=== PATIENT | male | born 1940 ===

== ENCOUNTER 2017-06-17 02:00 | Emergency (ER) | payer MEDICARE ==
[2017-06-17 02:15] VITALS: BMI 24.1
--- NOTE | 2017-06-17 02:28 | ED PDOC ---
HPI: Psych/Substance Abuse Time Seen by Provider: 06/17/17 02:13 Chief Complaint (Nursing): Alcohol Ingestion Chief Complaint (Provider): Alcohol Ingestion ED Caveat: Intoxicated History Per: Patient, EMS History/Exam Limitations: intoxication Onset/Duration Of Symptoms: Other (prior to arrival) Current Symptoms Are (Timing): Still Present Additional Complaint(s): 77 y/o male brought in by EMS due to alcohol intoxication. Patient was found publicly intoxicated. Patient has swelling to left cheek and a small skin tear. Speech is slurred and patient denies any recollection of sustaining his injury. Patient denies any medical complaints. Past Medical History Reviewed: Historical Data, Nursing Documentation, Vital Signs Vital Signs: Last Vital Signs Temp 98.0 F 06/17/17 02:11 Pulse 81 06/17/17 02:11 Resp 18 06/17/17 02:11 BP 132/70 06/17/17 02:11 Pulse Ox 97 06/17/17 02:11 - Medical History PMH: Hypothyroidism - Family History Family History: States: Unknown Family Hx - Immunization History Hx Tetanus Toxoid Vaccination: No Hx Influenza Vaccination: No Hx Pneumococcal Vaccination: No - Home Medications Home Medications: Ambulatory Orders Medication Instructions Recorded Levothyroxine 75 mcg PO DAILY 12/07/14 Prednisone 20 mg PO DAILY #3 tab 12/07/14 Betamethasone Valerate 0.1% 1 appl TOP DAILY 06/17/15 [Valisone] Cetirizine HCl [All Day Allergy] 10 mg PO DAILY PRN 06/17/15 Ergocalciferol (Vitamin D2) 1 tab PO QWK 06/17/15 [Vitamin D2] - Allergies Allergies/Adverse Reactions: Allergies Allergy/AdvReac Type Severity Reaction Status Date / Time No Known Allergies Allergy Verified 06/17/17 02:10 Review of Systems ROS Statement: Except As Marked, All Systems Reviewed And Found Negative ENT: Positive for: Other (left cheek swelling) Skin: Positive for: Lesions (left cheek tear) Physical Exam - Reviewed Nursing Documentation Reviewed: Yes Vital Signs Reviewed: Yes - Physical Exam Appears: Positive for: Non-toxic, No Acute Distress Head Exam: Positive for: NORMOCEPHALIC. Negative for: ATRAUMATIC (edema to left cheek, small skin laceration to left cheek) Skin: Positive for: Normal Color, Warm, Dry Eye Exam: Positive for: EOMI, Normal appearance, PERRL Neck: Positive for: Normal, Painless ROM, Supple Cardiovascular/Chest: Positive for: Regular Rate, Rhythm. Negative for: Murmur Respiratory: Positive for: Normal Breath Sounds. Negative for: Respiratory Distress Gastrointestinal/Abdominal: Positive for: Normal Exam, Bowel Sounds, Soft. Negative for: Tenderness Back: Positive for: Normal Inspection. Negative for: L CVA Tenderness, R CVA Tenderness, Vertebral Tenderness Extremity: Positive for: Normal ROM. Negative for: Pedal Edema, Deformity Neurologic/Psych: Positive for: Alert, Oriented. Negative for: Motor/Sensory Deficits - ECG O2 Sat by Pulse Oximetry: 97 (RA) Pulse Ox Interpretation: Normal Medical Decision Making Medical Decision Making: Time: 02:15 Initial Impression: 77 y/o male with alcohol intoxication and possible head or facial injury Initial Plan: --CT Head w/o contrast --CT Maxillofacial --Alcohol serum --Accucheck --Reevaluation Time: 04:48 CT HEAD FINDINGS: Brain: There is mild diffuse cerebral atrophy present, consistent with this patient's age. No hemorrhage. No significant white matter disease. No edema. Ventricles: Unremarkable. No ventriculomegaly. Bones/joints: Unremarkable. No acute fracture. Soft tissues: Unremarkable. Sinuses: There is diffuse mucoperiosteal thickening in the ethmoid and frontal sinuses, consistent with chronic sinusitis. Mastoid air cells: Unremarkable as visualized. No mastoid effusion. IMPRESSION: No evidence of an acute intracranial abnormality. Chronic sinusitis. Time: 05:07 CT MAXILLOFACIAL FINDINGS: Bones/joints: No acute fracture. Soft tissues: Facial soft tissue swelling. Orbits: Unremarkable. Sinuses: There is extensive mucoperiosteal thickening in the maxillary, ethmoid , frontal sinuses, consistent with chronic sinusitis. IMPRESSION: No acute fracture. Extensive chronic sinusitis. Time: 06:56 Upon reevaluation, patient is A&Ox3 with steady gait and normal speech. Patient is stable for discharge. Scribe Attestation: Documented by Tavo Gunderson, acting as a scribe for Sunil Scott MD. Provider Scribe Attestation: All medical record entries made by the Scribe were at my direction and personally dictated by me. I have reviewed the chart and agree that the record accurately reflects my personal performance of the history, physical exam, medical decision making, and the department course for this patient. I have also personally directed, reviewed, and agree with the discharge instructions and disposition. Disposition - Clinical Impression Clinical Impression: Alcohol abuse with intoxication - Patient ED Disposition Is Patient to be Admitted: No Counseled Patient/Family Regarding: Studies Performed, Diagnosis - Disposition Disposition: Routine/Home Disposition Time: 06:56 Condition: STABLE Forms: [employer] (Ukrainian)
--- NOTE | 2017-06-17 04:47 | CT ---
EXAM: CT Head Without Intravenous Contrast CLINICAL HISTORY: 77 years old, male; Injury or trauma; Fall; Initial encounter; Blunt trauma (contusions or hematomas); Consciousness not specified; Additional info: Head injury TECHNIQUE: Axial computed tomography images of the head/brain without intravenous contrast. All CT scans at this facility use one or more dose reduction techniques, viz.: automated exposure control; ma/kV adjustment per patient size (including targeted exams where dose is matched to indication; i.e. head); or iterative reconstruction technique. Coronal and sagittal reformatted images were created and reviewed. COMPARISON: No relevant prior studies available. FINDINGS: Brain: There is mild diffuse cerebral atrophy present, consistent with this patient's age. No hemorrhage. No significant white matter disease. No edema. Ventricles: Unremarkable. No ventriculomegaly. Bones/joints: Unremarkable. No acute fracture. Soft tissues: Unremarkable. Sinuses: There is diffuse mucoperiosteal thickening in the ethmoid and frontal sinuses, consistent with chronic sinusitis. Mastoid air cells: Unremarkable as visualized. No mastoid effusion. IMPRESSION: No evidence of an acute intracranial abnormality. Chronic sinusitis.
[2017-06-17] MEDS ORDERED: Tdap Vaccine 0.5 ml Vial (10-64 yrs) IM ONE ×2 (04:50→07:48)
--- NOTE | 2017-06-17 05:07 | CT ---
EXAM: CT Maxillofacial Without Intravenous Contrast CLINICAL HISTORY: 77 years old, male; Injury or trauma; Fall; Initial encounter; Blunt trauma (contusions or hematomas); Head/scalp and forehead; Without loss of consciousness; Additional info: Facial trauma TECHNIQUE: Axial computed tomography images of the face without intravenous contrast. All CT scans at this facility use one or more dose reduction techniques, viz.: automated exposure control; ma/kV adjustment per patient size (including targeted exams where dose is matched to indication; i.e. head); or iterative reconstruction technique. Coronal and sagittal reformatted images were created and reviewed. COMPARISON: No relevant prior studies available. FINDINGS: Bones/joints: No acute fracture. Soft tissues: Facial soft tissue swelling. Orbits: Unremarkable. Sinuses: There is extensive mucoperiosteal thickening in the maxillary, ethmoid, frontal sinuses, consistent with chronic sinusitis. IMPRESSION: No acute fracture. Extensive chronic sinusitis.
[2017-06-17 08:14] VITALS: BP 110/65; PULSE 74; RESP 17; TEMP 98.3; O2SAT 98
== END 2017-06-17 08:13 | disposition home or self-care (01) ==
LOC: H.ER 02:00
DX: F10.129 Alcohol abuse with intoxication, unspecified (principal); S09.90XA Unspecified injury of head, initial encounter; J32.9 Chronic sinusitis, unspecified; Z23 Encounter for immunization
CPT/HCPCS: 70450; 70486; 82948; 90471; 90715; 99283; G0480

== ENCOUNTER 2017-07-02 01:53 | Emergency (ER) | payer MEDICARE ==
[2017-07-02 01:54] VITALS: BMI 24.1
[2017-07-02 01:59] VITALS: RESP 18; TEMP 97.2
[2017-07-02] MEDS ORDERED: Tdap Vaccine 0.5 ml Vial (10-64 yrs) IM ONE ×2 (02:15→05:25)
--- NOTE | 2017-07-02 02:55 | ED PDOC ---
HPI: Psych/Substance Abuse Time Seen by Provider: 07/02/17 02:02 Chief Complaint (Nursing): Trauma Chief Complaint (Provider): Alcohol Intoxication History Per: Patient, EMS History/Exam Limitations: no limitations Current Symptoms Are (Timing): Still Present Suicide/Self Injury Attempted (Context): None Modifying Factor(s): Alcohol Additional Complaint(s): 77 year old male brought in by EMS presents to ED with complaints of facial/ head injury secondary to fall due to alcohol intoxication and has no past medical history. EMS states patient was found intoxicated in the streets. Patient reports that he fell and sustained injuries to his face. Complains of facial pain, headache, neck pain, and left hip pain. Admits to drinking alcohol. Denies all other complaints. PCP: SASHA Past Medical History Reviewed: Historical Data Vital Signs: Last Vital Signs Temp 97.2 F L 07/02/17 01:55 Pulse 76 07/02/17 01:55 Resp 18 07/02/17 01:55 BP 128/74 07/02/17 01:55 Pulse Ox 98 07/02/17 01:55 - Medical History PMH: Hypothyroidism - Surgical History Surgical History: No Surg Hx - Family History Family History: States: Unknown Family Hx - Social History Current smoker - smoking cessation education provided: Yes - Immunization History Hx Tetanus Toxoid Vaccination: No Hx Influenza Vaccination: No Hx Pneumococcal Vaccination: No - Home Medications Home Medications: Ambulatory Orders Medication Instructions Recorded Levothyroxine 75 mcg PO DAILY 12/07/14 Prednisone 20 mg PO DAILY #3 tab 12/07/14 Betamethasone Valerate 0.1% 1 appl TOP DAILY 06/17/15 [Valisone] Cetirizine HCl [All Day Allergy] 10 mg PO DAILY PRN 06/17/15 Ergocalciferol (Vitamin D2) 1 tab PO QWK 06/17/15 [Vitamin D2] - Allergies Allergies/Adverse Reactions: Allergies Allergy/AdvReac Type Severity Reaction Status Date / Time No Known Allergies Allergy Verified 06/17/17 02:10 Review of Systems ROS Statement: Except As Marked, All Systems Reviewed And Found Negative ENT: Positive for: Other ((+) facial pain) Musculoskeletal: Positive for: Neck Pain, Other ((+) left hip pain) Neurological: Positive for: Headache Physical Exam - Reviewed Nursing Documentation Reviewed: Yes Vital Signs Reviewed: Yes - Physical Exam Appears: Positive for: Non-toxic, No Acute Distress (comfortable) Head Exam: Positive for: NORMOCEPHALIC. Negative for: ATRAUMATIC (1 cm superficial abrasion above left eyebrow) Skin: Positive for: Normal Color, Warm, Dry Eye Exam: Positive for: Normal appearance, EOMI, PERRL ENT: Positive for: Other ((+) abrasion to bridge of nose). Negative for: Normal ENT Inspection (dry blood in left nostril, no active bleed. No septal hematoma. Throat and dentition normal) Neck: Positive for: Normal, Painless ROM, Supple Cardiovascular/Chest: Positive for: Regular Rate, Rhythm. Negative for: Murmur Respiratory: Positive for: Normal Breath Sounds. Negative for: Respiratory Distress Gastrointestinal/Abdominal: Positive for: Normal Exam, Soft. Negative for: Tenderness Extremity: Positive for: Normal ROM. Negative for: Deformity Neurologic/Psych: Positive for: Alert, Gait (unsteady), Aphasia (slurred speech) - ECG O2 Sat by Pulse Oximetry: 98 (RA) Pulse Ox Interpretation: Normal Medical Decision Making Medical Decision Makin Initial impression: EtOH intoxication, head injury and facial injury with abrasions, hip injury Initial plan: * CT CERVICAL SPINE * CT HEAD * CT MAXILLOFACIAL * EtOH serum * Adacel 0.5ml IM * XR HIP LEFT 0434 CT HEAD FINDINGS: Brain: Left basal ganglia calcification. Mild cerebral and cerebellar volume loss. Minimal hypodensity is seen in the periventricular cerebral white matter. No hemorrhage. Ventricles: Unremarkable. No ventriculomegaly. Bones/joints: Unremarkable. No acute fracture. Soft tissues: Unremarkable. Sinuses: Moderate patchy sinus disease. There is opacification of left frontal sinus. Mastoid air cells: Unremarkable. No mastoid effusion. Orbits: The globes are intact. IMPRESSION: No evidence of an acute intracranial hemorrhage, midline shift or mass effect is identified. 0456 CT MAXILLOFACIAL FINDINGS: Bones/joints: There is hyperostosis of bilateral maxillary sinuses. No acute fracture. Soft tissues: Anterior submandibular soft tissue infiltration seen on image 3 series 3 suspicious for hematoma and contusion. Lymph nodes: Bilateral submandibular and cervical chain lymph nodes. Facet arthritis and multilevel degenerative disc disease. Orbits: The right globe and lens is intact. The left globe is intact. The left eye is unchanged when compared to prior examination. Sinuses: Moderate to severe patchy sinus disease. There is opacification of left frontal sinus. There is obscuration of bilateral ostiomeatal units with mucosal thickening. There is nonspecific deformity of anterior maxillary spine seen on image 67 series 602. Dental: Edentulous maxilla and mandible. Mandibular denture is in place. Brain: Cerebral and cerebellar volume loss. Patchy hypodensity is seen in the periventricular and subcortical white matter. IMPRESSION: 1. Anterior submandibular soft tissue infiltration seen on image 3 series 3 suspicious for hematoma and contusion. 2.There is no evidence of acute fracture. XR HIP/PELVIS LEFT: no acute findings. 0502 CT CERVICAL SPINE FINDINGS: Vertebrae: Left-sided cervical spine scoliosis. No acute fracture. Facet arthritis. Discs/spinal canal/neural foramina: C3-C4: There is central disc herniation seen on image 34 series 2. No spinal canal stenosis. Other bones/joints: Mandibular densities in place. Soft tissues: Unremarkable. Lymph nodes: Bilateral cervical chain lymph nodes. Sinuses: Moderate to severe patchy sinus disease. Dental: Edentulous maxilla and mandible. Lung apices: Bilateral posterior upper lobe pleural parenchymal consolidation and infiltrate. Correlation with patient's pulmonary history is recommended. IMPRESSION: There is no acute fracture of cervical spine. Scribe Attestation: Documented by Caitie Wong acting as a scribe Virginia Dobbins MD. Scribe Attestation: All medical record entries made by the Scribe were at my direction and personally dictated by me. I have reviewed the chart and agree that the record accurately reflects my personal performance of the history, physical exam, medical decision making, and the department course for this patient. I have also personally directed, reviewed, and agree with the discharge instructions and disposition. Disposition - Clinical Impression Clinical Impression: Head injury, Facial injury, Abrasion, Hip sprain, Alcohol intoxication - Patient ED Disposition Is Patient to be Admitted: No Doctor Will See Patient In The: Office Counseled Patient/Family Regarding: Studies Performed, Diagnosis, Need For Followup - Disposition Referrals: [facility] [Outside] Disposition: Routine/Home Disposition Time: 05:00 Condition: GOOD Additional Instructions: Follow up with your PCP in 2-3 days. Instructions: Minor Head Injury, Alcohol Abuse and Alcoholism (DC) Print Language: MAORI
[2017-07-02 05:15] VITALS: BP 131/70; PULSE 73
[2017-07-02 05:16] VITALS: O2SAT 98
--- NOTE | 2017-07-02 10:36 | RAD ---
LEFT HIP WITH PELVIS RADIOGRAPHS Two views of the left hip been submitted with single frontal view of the pelvis for evaluation of trauma. No prior comparison available. There is no acute fracture dislocation identified involving the left hip joint. Symmetric degenerative changes seen the bilateral sacroiliac and hip joints. No destructive bony lesion is seen throughout the pelvic ring or the left hip joint. Pubic symphysis appears intact. Vascular calcifications are seen in the pelvic soft tissues and a rounded density at the mid to inferior pelvis soft tissues is suggestive of a distended urinary bladder. Clinically correlate. IMPRESSION: No displaced fracture left hip joint or the pelvic ring. No dislocation left hip joint. Degenerative changes bilateral hip and sacroiliac joints. Likely distended urinary bladder. Clinically correlate further.
--- NOTE | 2017-07-02 10:55 | CT ---
EXAMINATION PERFORMED: CT head without intravenous contrast. CLINICAL HISTORY: Nasal laceration COMPARISON EXAMINATIONS: 06/17/2017. TECHNIQUE: 2.5 mm axial acquisition and display. Coronal and sagittal reconstructions. Dose report (mGy-cm): 790.34 Unenhanced study: Coronal and sagittal reconstructed images. FINDINGS: Brain: No intracranial hemorrhage. No mass. Ventricles: No hydrocephalus. Calvarium: Unremarkable. Sinuses: No evidence of acute sinusitis. Mastoid air cells: Unremarkable. Other findings: None. IMPRESSION: No acute intracranial abnormalities. No significant findings to account for the clinical presentation. No significant interval change compared to the prior examination(s). Concordant results (preliminary interpretation) provided by [facility]. Procedure Completed: 03:41 Preliminary ([facility]) Report: Dictated and Authenticated: 04:34 Final Interpretation: 10:53. July 02, 2017.
--- NOTE | 2017-07-02 11:30 | CT ---
CERVICAL SPINE CT WITHOUT CONTRAST 07/02/[address] acquisition through the cervical spine was performed without intravenous contrast as requested. Reformatted datasets provided in sagittal axial and coronal planes. No prior comparison available. Radiation dose: DLP =382.[address] exam was performed using one or more of the following dose reduction techniques: Automated exposure control, adjustment of the mA and/or kV according to patient size, and/or use of iterative reconstruction technique. There is a borderline spondylolisthesis C7-T1 was C7 questionably anterior to T1 likely on the basis of facet joint arthropathy. Cervical curvature is otherwise unremarkable. No cyst destructive bony lesion identified or definitive fracture/subluxation. Facet joint relationships are intact though degenerative diffusely. No destructive bony lesion identified. C1-2 articulation appears mildly degenerated with the craniocervical junction intact. Local soft tissues appear grossly nonfocal. C2-3 level is unremarkable. A small central disc protrusions appreciated at C3-4 likely encroaching ventral nerve roots without significant generalized central canal stenosis resulting. Neural foramina are widely patent bilaterally. A mild disc osteophyte complexes circumferential at C4-5 with a mild right neural foraminal stenosis appreciated. None is seen the left. No significant central canal stenosis. Limited disc bulging is seen at C5-6 with [id number] right but no left neural foraminal stenosis, caused by uncovertebral and facet arthropathy. At C6-7, limited degenerative right neural foraminal stenosis appreciated on a [id number] basis due to uncovertebral and facet arthropathy with the left neural foramen widely patent as well as the central canal. No significant stenosis at C7-T1. Incidental prominent bilateral ethmoid sinusitis identified with the bilateral mastoid air cells clear. Limited biapical pulmonary fibrosis noted. IMPRESSION: One C7-T1 spondylolisthesis appears degenerative. A small C3-4 disc protrusion is seen centrally, likely encroaching ventral nerve roots but without causing significant soft tissue central canal stenosis. No severe stenosis throughout the exam with only multilevel degenerative neural foraminal stenoses appreciated at the right C4, C5 and C6 neural foramina. Limited multilevel spondylosis. Concordant report submitted preliminarily by Nolvia 07/02/2017.
--- NOTE | 2017-07-02 11:40 | CT ---
FACIAL CT WITHOUT CONTRAST 07/02/[address] acquisition was performed through the facial bones with sagittal, axial and coronal reformatted datasets provided for interpretation. Intravenous contrast not administered as per standard protocol an request. There is a prior history of head/facial injury. Comparison made prior facial CT 06/17/2017. Radiation dose: DLP = 687.[address] exam was performed using one or more of the following dose reduction techniques: Automated exposure control, adjustment of the mA and/or kV according to patient size, and/or use of iterative reconstruction technique. No displaced fracture is appreciated throughout the facial bones diffusely. The mandible, maxilla and visualized frontal, temporal and sphenoid bones appear intact. No destructive bony lesion is appreciated. Nasal septum is midline. Multifocal potentially chronic opacification of bilateral maxillary and ethmoid sinuses is appreciated as well as the left frontal sinus with somewhat thickened bony margins. The bilateral mastoid air cells appear patent. The pterygoid bones and zygomatic arches are intact. No suspicious orbital soft tissue findings are appreciated with the bony orbits appear intact throughout. Pre mandibular soft tissue edema and possible hematoma is appreciated moderately with annular denture appreciated intact. Patient is edentulous. The visualized pharynx appears unremarkable and incidental views through the visualized anterior to mid inferior intracranial space is unremarkable. IMPRESSION: * Pre mandibular edema/hematoma is suggested moderately without underlying fracture. No fracture is appreciated throughout the facial bones as discussed above. * Extensive likely chronic sinusitis changes affect the bilateral maxillary and ethmoid sinuses as well as left frontal sinus. Posttraumatic component not completely excluded. Concordant preliminary report from [facility], 07/02/2017.
== END 2017-07-02 05:40 | disposition home or self-care (01) ==
LOC: H.ER 01:53
DX: S09.90XA Unspecified injury of head, initial encounter (principal); S00.81XA Abrasion of other part of head, initial encounter; S01.21XA Laceration without foreign body of nose, initial encounter; W19.XXXA Unspecified fall, initial encounter; Y92.89 Other specified places as the place of occurrence of the external cause; E03.9 Hypothyroidism, unspecified; M48.02 Spinal stenosis, cervical region; M50.21 Other cervical disc displacement, high cervical region
CPT/HCPCS: 70450; 70486; 72125; 73502; 90471; 90715; 99285; G0480